=== PATIENT | female | born 1960 | race Caucasian/White ===

== ENCOUNTER → 2020-05-29 | Outpatient (CLI) | payer OTHER ==
[2020-04-08 13:18] VITALS: BP 189/98
[~2020-05-29] MED LIST: DAILY VALUE1 EACH PO
== END ==
LOC: MAMMO 15:00
DX: Z12.31 Encounter for screening mammogram for malignant neoplasm of breast (principal)

== ENCOUNTER → 2024-06-01 | Outpatient (CLI) | payer OTHER | LOC: MAMMO 13:58 | DX: Z12.31 Encounter for screening mammogram for malignant neoplasm of breast (principal) ==